=== PATIENT | male | born 1945 | race Caucasian/White ===

== ENCOUNTER 2016-10-31 12:45 | Emergency (ER) | payer OTHER ==
[~2016-10-31] VITALS: Ht 180.3 cm; Wt 89.8 kg
[~2016-10-31 12:45] MED LIST: ACETAMINOPHEN325 M1 PO; ACID CONTROLLER20 MG PO; ADVIL,NUPRIN,M200 MG PO; ALBUTEROL0.63 MG/3 IH; ALKA-SELTZER P1 EAC2 PO; AMLODIPINE BESYL5 MG PO; BENGAY VANISHIN57 GM TP; BP PILL; CALCIUM ANTACI500 MG PO; DAILY MULTIPLE1 EACH PO; DOCUSATE SODIU100 MG PO; ECONAZOLE NITRA15 GM TP; FAMOTIDINE10 M1 PO; GUAIFENESIN AC473 ML PO; IBUPROFEN200 M1 PO; ICY HOT CREAM35.4 G1 TP; LEVOFLOXACIN750 MG PO; MILK OF MAGN PO; MIRALAX17 GM PO; MOTRIN800 MG PO; MULTIVITAMIN1 EAC1 PO; MULTIVITAMIN1 EAC2 PO; NORVASC5 MG PO; OMEPRAZOLE40 M1 PO; PAIN RELIEF650 MG PO; PERCOCET 10/1 TABLET PO; PHENERGAN12.5 M1 PO; PINK BISMU PO; POLYETHYLENE GL17 GM PO; PROAIR HFA8.5 GM IH; PROMETHAZINE HC25 M1 PO; RANITIDINE HCL150 M1 PO; ROPINIROLE HCL0.5 MG PO; SIMVASTATIN10 MG PO; SPIRIVA1 INHALATI IH; TRAMADOL HCL50 MG PO; VENTOLIN17 GM IH
[2016-10-31 16:58] VITALS: BP 140/53
== END 2016-10-31 16:59 | disposition home or self-care (01) ==
LOC: EME 12:45
DX: M54.5 Low back pain (principal); S20.212A Contusion of left front wall of thorax, initial encounter; I10 Essential (primary) hypertension; F17.200 Nicotine dependence, unspecified, uncomplicated; W18.30XA Fall on same level, unspecified, initial encounter; Z91.81 History of falling
CPT/HCPCS: 71101; 72100; 99281; 99284

== ENCOUNTER 2017-04-04 10:02 | Day surgery (SDC) | payer OTHER ==
[~2017-04-04] VITALS: Ht 170.2 cm; Wt 93.4 kg
[~2017-04-04 10:02] MED LIST changes: +ARTIFICIAL TEAR15 M1 BOTH EYES; +BENADRYL ITCH28.3 GM TP; +IBUPROFEN600 MG PO; +MUCINEX D ER T1 EACH PO; +MULTI-VITAMIN-1 EACH PO; +SYMBICORT60 INHALAT IH; +TESSALON PERLE100 MG PO; +WELLBUTRIN SR150 MG PO
[2017-04-04 10:54] VITALS: BP 124/57
[2017-04-04 11:54] VITALS: BP 132/64
[2017-04-04 11:58] LABS: METH RESISTANT S AUREUS PCR NEGATIVE (NEGATIVE); PROBE CHECK PASS; SPECIMEN PROCESSING CONTROL PASS
[2017-04-04 15:10] VITALS: BP 148/69
== END 2017-04-04 15:53 | disposition home or self-care (01) ==
LOC: SDC 10:02
PROVIDERS: Ophthalmology
DX: H35.372 Puckering of macula, left eye (principal); I10 Essential (primary) hypertension; J44.9 Chronic obstructive pulmonary disease, unspecified; F17.210 Nicotine dependence, cigarettes, uncomplicated
CPT/HCPCS: 87641; J0690; J0713; J2795; J3300

== ENCOUNTER → 2018-04-02 | Outpatient (CLI) | payer OTHER ==
[~2018-04-02] MED LIST changes: +ACETAZOLAMIDE500 MG PO; +ALPHAGAN P100 DROP/1 BOTH EYES; +ATROPINE 1100 DROP/5 BOTH EYES; +LOW DOSE ASPIRI81 M1 PO; +MISOPROSTOL100 MCG PO; +MOBIC7.5 MG PO; +TRUSOPT 2%200 DROP/2 BOTH EYES
== END | disposition home or self-care (01) ==
LOC: OPR 09:51 → EDSTATUS 10:00
PROC: 0FB03ZX Excision of Liver, Percutaneous Approach, Diagnostic (ICD-10-PCS; principal; 2018-04-02)
DX: C22.9 Malignant neoplasm of liver, not specified as primary or secondary (principal); J44.9 Chronic obstructive pulmonary disease, unspecified; I10 Essential (primary) hypertension; F03.90 Unspecified dementia, unspecified severity, without behavioral disturbance, psychotic disturbance, mood disturbance, and anxiety; K21.0 Gastro-esophageal reflux disease with esophagitis; R26.81 Unsteadiness on feet; F17.200 Nicotine dependence, unspecified, uncomplicated
CPT/HCPCS: 77012; 88305; 88341 TC; 88342 TC; J3010

== ENCOUNTER 2018-04-29 12:13 | Emergency (ER) | payer OTHER ==
[~2018-04-29] VITALS: Ht 172.7 cm; Wt 81.5 kg
[2018-04-29 12:54] LABS: HEMATOCRIT 29.3 % (38.0-50.0); HEMOGLOBIN 10.3 G/DL (12.5-16.6); MCH 30.1 PG (29.0-34.0); MCHC 35.2 G/DL (30.0-36.0); MCV 85.7 FL (86-99); NRBC (%) 0.6 /100 WBC (0-0); PLATELET COUNT 258 K/uL (156-360); RBC DIS.WIDTH-CV 21.2 % (11.8-14.6); RED BLOOD COUNT 3.42 M/uL (4.00-5.50); WHITE BLOOD COUNT 11.9 K/uL (4.1-10.2)
[2018-04-29 13:00] LABS: INTER. NORMALIZED RATIO 1.4
[2018-04-29 13:05] LABS: CHLORIDE 91 mEq/L (99-109); POTASSIUM 4.8 mEq/L (3.7-5.4); SODIUM 127 mEq/L (136-147)
[2018-04-29 13:06] LABS: GLUCOSE 78 mg/dL (70-99)
[2018-04-29 13:10] LABS: CREATININE 2.1 mg/dL (0.6-1.3); GFR ESTIMATE (CALCULATED) 33 mL/min/ (58.99-99999)
[2018-04-29 13:11] LABS: UREA NITROGEN (BUN) 70 mg/dL (9-23)
[2018-04-29 13:17] LABS: TROP-I INTERPRETATION NEGATIVE; TROPONIN-I < 0.01 ng/mL (0.0-0.30)
[2018-04-29 17:27] VITALS: BP 100/36
== END 2018-04-29 18:01 | disposition home or self-care (01) ==
LOC: EME 12:13
PROVIDERS: Emergency Medicine
DX: E86.0 Dehydration (principal); R09.02 Hypoxemia; C22.9 Malignant neoplasm of liver, not specified as primary or secondary; R60.0 Localized edema; R53.1 Weakness; R32 Unspecified urinary incontinence; Z92.21 Personal history of antineoplastic chemotherapy; J44.9 Chronic obstructive pulmonary disease, unspecified; I10 Essential (primary) hypertension; F03.90 Unspecified dementia, unspecified severity, without behavioral disturbance, psychotic disturbance, mood disturbance, and anxiety; Z79.82 Long term (current) use of aspirin; F17.200 Nicotine dependence, unspecified, uncomplicated
CPT/HCPCS: 71045; 80048; 83605; 84484; 85027; 85379; 85610; 87040; 93005; 93971; 99281; 99285; J2270; J7030